=== PATIENT | female | born 1950 | race Caucasian/White ===

== ENCOUNTER 2016-11-21 09:59 | Inpatient (IN) | payer OTHER, MEDICARE ==
[~2016-11-21 09:59] MED LIST: BACITRACIN 50,000 UNITS/10 ML SYR IRR ONE; BUPIVACAINE/EPI 0.25% 30 ML SDV ONE; THROMBIN (BOVINE) 20,000 UNIT VIAL TP ONE
[2016-11-21] MEDS ORDERED: ceFAZolin 2 GM/DEXTROSE 100 ML IV ONE (10:38)
[2016-11-21] MEDS ORDERED: morphINE PF 5 MG/10 ML INJ IT ONE (10:38)
[2016-11-21] MEDS ORDERED: GABAPENTIN 100 MG CAP PO ONE (10:38)
[2016-11-21] MEDS ORDERED: ACETAMINOPHEN 500 MG TAB PO ONE (10:38)
--- NOTE | 2016-11-21 10:41 | PDHPUP ---
History & Physical Update H&P update statement: This history and physical update is based on an assessment of the patient which was completed after admission or registration (within 24 hours), but prior to the surgery/procedure. H&P update: H&P reviewed & patient examined, no change in patient's condition since H&P completed (All questions answered.)
[2016-11-21] MEDS ORDERED: CITRATE DEXTROSE SOLN 500 ML BAG ONE ×2 (11:00→12:35)
[2016-11-21] MEDS ORDERED: LR 1,000 ML IV ONE (11:03)
[2016-11-21] MEDS ORDERED: GABAPENTIN 300 MG CAP PO ONE (11:15)
[2016-11-21] MEDS ORDERED: SCOPOLAMINE HYDROBROMIDE 1.5 MG PATCH TD ONE (11:24)
--- NOTE | 2016-11-21 11:35 | PDANEPAE ---
ANE History of Present Illness 65 year old female with back pain/ numbness/tingling L > R leg. ANE Past Medical History Past Medical History: No URI/fever x2 weeks. - Cardiovascular History Hx Hypertension: Yes Hx Arrhythmias: No Hx Chest Pain: No Hx Coronary Artery / Peripheral Vascular Disease: No Hx CHF / Valvular Disease: No Hx Palpitations: No Cardiovascular History Comment: if she takes too much caffeine she gets fluttering in heart but she stays away from caffeine. pcp manages bp meds. - Pulmonary History Hx COPD: No Hx Asthma/Reactive Airway Disease: No Hx Recent Upper Respiratory Infection: No Hx Oxygen in Use at Home: No Hx Sleep Apnea: No Sleep Apnea Screening Result - Last Documented: Positive Pulmonary History Comment: gabbie triggers no dx - Neurologic History Hx Cerebrovascular Accident: No Hx Seizures: No Hx Dementia: No Neurologic History Comment: lumbar stenosis L2 L3 L4. DDD - Endocrine History Hx Diabetes: No Obesity: severe - Renal History Hx Renal Disorders: No - Liver History Hx Hepatic Disorders: No - Neurological & Psychiatric Hx Hx Neurological and Psychiatric Disorders: Yes Neurological / Psychiatric History Comment: pain --gluteal and back of legs . numbness and pain more on L side -radiates to L ft. - Cancer History Hx Cancer: No - Congenital Disorder History Hx Congenital Disorders: No - GI History Hx Gastrointestinal Disorders: No - Other Health History Other Health History: R shoulder injury 1 yr ago - Chronic Pain History Chronic Pain: Yes (left knee pain) - Surgical History Prior Surgeries: 04/2014 L TKR. tonsillectomy at 8 years old. wisdom teeth. ovaries removed ANE Review of Systems - Exercise capacity METS (RN): 4 METS - Systems Constitutional: Reports: no symptoms Cardiac: Reports: no symptoms Respiratory: Reports: no symptoms ANE Patient History - Allergies Allergies/Adverse Reactions: codeine Allergy (Mild, Verified 11/17/16 15:42) NAUSEA - Home Medications Home medications: home medication list seen and reviewed Home Medications: Cholecalciferol Vit D3 [Vitamin D3 (*)] 5,000 units PO DAILY 06/23/16 [Last Taken Unknown] Cyanocobalamin [Vitamin B12 (*)] 1,000 mcg PO DAILY 06/23/16 [Last Taken Unknown ] Herbals/Supplements -Info Only 1 ea PO DAILY 06/23/16 [Last Taken Unknown] Lisinopril/Hctz 10/12.5 mg [Zestoretic/Prinzide 10/12.5MG (*)] 1 ea PO DAILY [Last Taken Unknown] [place]-3 Fatty Acids [Fish Oil 1000 mg (*)] 1,000 mg PO DAILY 06/23/16 [Last Taken Unknown] Acetaminophen [Tylenol ES 500 mg (*)] 1,000 mg PO Q6 PRN 11/14/16 [Last Taken Unknown] Hydrocodone/Acetaminophen [[place] 5/325 (*)] 1 - 2 tab PO Q4H PRN 11/14/16 [Last Taken Unknown] Loratadine [Claritin 10 mg] 10 mg PO DAILY 11/14/16 [Last Taken Unknown] - NPO status NPO Since - Liquids (Date): 11/20/16 NPO Since - Liquids (Time): 21:00 NPO Since - Solids (Date): 11/20/16 NPO Since - Solids (Time): 21:00 - Anes Hx Anes Hx: post operative nausea Hx Anesthesia Complications (with details): shivering after oophorectomy - Smoking Hx Smoking Status: Never smoked Marijuana use: No - Alcohol Use Alcohol Use: Rarely - Family Anes Hx Family Anes Hx: neg - N/A Family Hx Anesthesia Complications: none ANE Labs/Vital Signs - Labs - CBC WBC: reviewed; no anemia - Labs - BMP Sodium: reviewed, WNL - Vital Signs Blood Pressure: 171/93 Heart Rate: 78 Respiratory Rate: 18 O2 Sat (%): 93 Height: 172.72 cm Weight: 131.542 kg ANE Physical Exam - Airway Neck exam: FROM Mallampati Score: Class 2 Mouth exam: normal dental/mouth exam - Pulmonary Pulmonary: clear to auscultation - Cardiovascular Cardiovascular: regular rate and rhythym - ASA Status ASA Status: III ANE Anesthesia Plan Anesthesia Plan: general endotracheal anesthesia Lines/Monitors: arterial line, additional IV
[2016-11-21] MEDS ORDERED: PROPOFOL/EMULSION 500 MG/50 ML BOTTLE IV ONE ×4 (11:43→15:28)
[2016-11-21] MEDS ORDERED: LIDOCAINE 2% 5 ML SDV ONE (11:43)
[2016-11-21] MEDS ORDERED: REMIFENTANIL HCL 1 MG VIAL ONE ×3 (11:43→15:03)
[2016-11-21] MEDS ORDERED: DEXAMETHASONE 4 MG/ML VIAL ONE (11:43)
[2016-11-21] MEDS ORDERED: ROCURONIUM 50 MG/5 ML VIAL ONE ×2 (11:43→12:47)
[2016-11-21] MEDS ORDERED: TRANEXAMIC ACID 1,000 MG in NS 100 ML IV ONE (11:46)
[2016-11-21] MEDS ORDERED: TRANEXAMIC ACID 1,300 MG in NS 100 ML IV ONE (11:46)
[2016-11-21] MEDS ORDERED: KETAMINE 100 MG/10 ML SYR ONE (11:50)
[2016-11-21] MEDS ORDERED: fentaNYL 100 MCG/2 ML INJ ONE (11:53)
[2016-11-21] MEDS ORDERED: DEXMEDETOMIDINE HCL 400 MCG in NS 100 ML IV SCH (12:00)
[2016-11-21] MEDS ORDERED: VASOPRESSIN 20 UNIT/ML VIAL ONE (12:36)
[2016-11-21] MEDS ORDERED: PROMETHAZINE HCL 25 MG/ML INJ IVP PRN (17:05)
[2016-11-21] MEDS ORDERED: HYDROmorphONE/DILAUDID 1 MG/ML SYR IVP PRN ×2 (17:05)
[2016-11-21] MEDS ORDERED: NALOXONE HCL 0.4 MG/ML INJ IVP PRN (17:05)
[2016-11-21] MEDS ORDERED: LR 500 ML IV PRN (17:05)
[2016-11-21] MEDS ORDERED: ONDANSETRON 4 MG/2 ML VIAL ONE (17:06)
[2016-11-21] MEDS ORDERED: oxyCODONE IR 5 MG TAB PO PRN (17:33)
[2016-11-21] MEDS ORDERED: POLYETHYLENE GLYCOL 3350 17 GM PKT PO PRN (17:33)
[2016-11-21] MEDS ORDERED: MAGNESIUM HYDROXIDE 30 ML UDCUP PO PRN (17:33)
[2016-11-21] MEDS ORDERED: BISACODYL 10 MG SUPP PR PRN (17:33)
[2016-11-21] MEDS ORDERED: LACTULOSE 20 GM/30 ML UDCUP PO PRN (17:33)
[2016-11-21] MEDS ORDERED: diphenhydrAMINE 25 MG CAP PO PRN (17:33)
[2016-11-21] MEDS ORDERED: ONDANSETRON 4 MG/2 ML VIAL IVP PRN (17:33)
[2016-11-21] MEDS ORDERED: ENALAPRILAT DIHYDRATE 1.25 MG/ML VIAL IVP PRN (17:43)
[2016-11-21] MEDS ORDERED: NS 1,000 ML IV SCH (17:45)
[2016-11-21] MEDS ORDERED: hydrALAZINE 20 MG/ML VIAL IVP PRN ×2 (17:46→17:51)
--- NOTE | 2016-11-21 17:50 | POSTOPPROG ---
Post Op Note Date of Operation: 11/21/16 Surgeon: Cathryn Gutierrez Novelty Candy Maker: Micah Gutierrez PA-C Anesthesiologist: Estella Anesthesia: GET(General Endotracheal) Pre-op Diagnosis: lumbar stenosis, ddd Post-op Diagnosis: same Indication: pain, stenosis Procedure: L2-4 laminectomy, L2-5 TLIF and posterior fusion Findings: Please see dictation Inf/Abcess present in the surg proc area at time of surgery?: No Depth: Organ Space EBL: 100-500 Complications: none Drains: Tapan Friedman Specimen(s): none PA Addendum - Addendum .: S: Pt resting in bed, c/o back pain O: AAOx3 NAD VSS MAEx4 Motor 5/5 BUE/BLE +LT Incision dressed cdi Kolb in A: 65 yo F s/p L2-4 laminectomy, L2-5 TLIF and posterior fusion P: To ICU overnight due to elevated BP in pre op Consulted hospitalists for assistance with medical management PT/OT Brace when OOB Silver dressing on incision - leave on for 7 days JPx1 DC kolb in AM Post op xrays pending Call NS with any issues
[2016-11-21] MEDS: SCOPOLAMINE HYDROBROMIDE 1.5 MG PATCH TD SCH (18:22)
--- NOTE | 2016-11-21 18:27 | POSTANESTH ---
Post Anesthetic Evaluation Cardiovascular Status: Normal, Stable Respiratory Status: Normal, Stable Level of Consciousness/Mental Status: Can Participate in Eval, Moderately Sleepy Pain Control: Adequate, Prn Tx Ordered (Back is sore, feels as though it is arched per pt. Placed a pillow under her knees to help with her spinal position. ) Nausea/Vomiting Control: Adequate, Prn Tx Ordered Complications Possibly Related to Anesthesia: None Noted
--- NOTE | 2016-11-21 20:01 | CPEKG ---
Heart Rate: 59 RR Interval: 1017 P-R Interval: 244 QRSD Interval: 94 QT Interval: 444 QTC Interval: 440 P [place]: 28 QRS [place]: -6 T Wave [place]: 50 EKG Severity - ABNORMAL ECG - EKG Impression: SINUS RHYTHM EKG Impression: FIRST DEGREE AV BLOCK EKG Impression: BORDERLINE T WAVE ABNORMALITIES Electronically Signed By: Mandeep German 22-Nov-2016 08:02:22
[2016-11-21] MEDS: FAMOTIDINE 20 MG TAB PO SCH (20:43)
[2016-11-21] MEDS: METHOCARBAMOL 750 MG TAB PO PRN (20:43)
[2016-11-21] MEDS: SENNOSIDES/DOCUSATE SODIUM TAB PO SCH (20:44)
[2016-11-21] MEDS: HYDROCODONE/APAP 5/325 TAB PO PRN ×2 (20:45→21:34)
[2016-11-21] MEDS: ceFAZolin 2 GM/DEXTROSE 100 ML IV SCH (20:45)
[2016-11-21] MEDS: POLYETHYLENE GLYCOL 3350 17 GM PKT PO SCH (21:49)
--- NOTE | 2016-11-21 23:18 | GCON ---
[f rep st] CONSULTATION HOSPITALIST MEDICINE CONSULTATION REFERRING PHYSICIAN: Jordy Crisostomo MD REASON FOR CONSULTATION: Uncontrolled hypertension. HISTORY OF PRESENT ILLNESS: This is a 65-year-old female, who underwent L2 to L4 laminectomy and L2 to L5 TLIF and posterior fusion with history of hypertension, whom I was asked to see postoperative ly due to elevated blood pressure at the initiation of her procedure. I reviewed her anesthesia rec ords where it appears her blood pressure was 200/100 at 10 o'clock this morning. She typically take s lisinopril/hydrochlorothiazide for high blood pressure, but did not take her medications today in preparation for surgery. She tells me that her blood pressure often raises when she is stressed. S he denies any chest pain or shortness of breath. She states her blood pressure has been under good control. IV enalapril and hydralazine have been ordered, but do not appear to have been administere d. Currently she is normotensive here in the ICU. PAST MEDICAL HISTORY: Hypertension. PAST SURGICAL HISTORY: 1. 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 2. Tonsillectomy and adenoidectomy as a child. 3. Left total knee arthroplasty. HOME MEDICATIONS: Reviewed; refer to [facility] for details next. ALLERGIES: Codeine. SOCIAL HISTORY: She denies any alcohol, tobacco, or illicit drug use. FAMILY HISTORY: Reviewed and noncontributory. REVIEW OF SYSTEMS: Comprehensive 10-point review of systems was done and is negative, except for as mentioned in the HPI. PHYSICAL EXAMINATION: VITAL SIGNS: Blood pressure 115/70, pulse 68, respiratory rate 20, O2 satura tion 95% on room air, temperature afebrile. GENERAL: No acute distress. HEAD: Normocephalic, atr aumatic. EYES: PERRLA. Sclerae anicteric. MOUTH: Moist mucous membranes. NECK: Supple. No ly mphadenopathy. CARDIOVASCULAR: S1, S2. No murmurs, rubs, clicks, gallops, or JVD. No lower extre mity edema. PULMONARY: Lungs are clear. No wheezes, rales, or rhonchi. Breath sounds are diminis hed in the bases. ABDOMEN: Soft, nontender, nondistended. No guarding or rebound tenderness. Nor moactive bowel sounds. EXTREMITIES: No clubbing or cyanosis. NEUROLOGIC: There is no saddle anes thesia. She is able to flex and extend her digits and foot. SKIN: Clear no rashes. I did not exa mine her incision. DIAGNOSTICS: Laboratory studies on 11/13/2016 were reviewed. WBC 7.56, hemoglobin 14.5, hematocrit 42.5, platelets 209. Sodium 138, potassium 3.8, chloride 104, CO2 is 25, BUN 23, creatinine 1, glu cose 92. LFTs unremarkable. ASSESSMENT AND PLAN: This is a 65-year-old female, postoperative day 0, L2 TO L4 laminectomy, L2 TO L5 transforaminal lumbar interbody fusion and posterior fusion, whom I have been asked to see due t o uncontrolled hypertension. The patient is normotensive and resting comfortably in the ICU. PLAN: Hospital Medicine Service will continue to follow the patient while she is in the hospital. For now, will resume her home dose of hydrochlorothiazide and lisinopril. Thank you for allowing me to participate in the care of this patient. The Hospitalist Service will continue to follow along with you. /[id number]/MODL
[2016-11-22] MEDS: HYDROCODONE/APAP 5/325 TAB PO PRN ×5 (00:32→14:56)
[2016-11-22] MEDS: METHOCARBAMOL 750 MG TAB PO PRN ×4 (03:11→20:01)
[2016-11-22] MEDS: ceFAZolin 2 GM/DEXTROSE 100 ML IV SCH (05:37)
[2016-11-22 05:57] LABS: % IMMATURE GRANULYOCYTES 0.3 % (0.0-1.1); ABSOLUTE IMMATURE GRANULOCYTES 0.03 10^3/uL (0.00-0.10); ADD DIFF? NO; ADD MORPH? NO; ADD SCAN? NO; ATYPICAL LYMPHOCYTE FLAG 0 (0-99); FRAGMENT RBC FLAG 0 (0-99); HEMATOCRIT 33.9 % (38.0-47.0); HEMOGLOBIN 11.8 g/dL (12.6-16.3); LEFT SHIFT FLG 0 (0-99); LIPEMIA HEMOLYSIS FLAG 90 (0-99); MEAN CELL HEMOGLOBIN 30.7 pg (27.9-34.1); MEAN CELL HEMOGLOBIN CONCENTR. 34.8 g/dL (32.4-36.7); MEAN CELL VOLUME 88.3 fL (81.5-99.8); MEAN PLATELET VOLUME 9.6 fL (8.7-11.7); PLATELET CLUMPS FLAG 10 (0-99); PLATELET COUNT 184 10^3/uL (150-400); RED BLOOD CELL COUNT 3.84 10^6/uL (4.18-5.33); RED CELL DISTRIBUTION WIDTH 13.2 % (11.5-15.2)
[2016-11-22 06:11] LABS: ANION GAP 8 mEq/L (8-16); CALCIUM 8.1 mg/dL (8.5-10.4); CARBON DIOXIDE 20 mEq/l (22-31); CHLORIDE 110 mEq/L (97-110); CREATININE 0.8 mg/dL (0.6-1.0); GLOMERULAR FILTRATION RATE > 60; GLUCOSE 93 mg/dL (70-100); SODIUM 138 mEq/L (134-144)
[2016-11-22] MEDS: ENOXAPARIN 40 MG/0.4 ML SYR SC SCH (07:54)
[2016-11-22] MEDS: CYANO/VITAMIN B12 1000 MCG TAB PO SCH (07:54)
[2016-11-22] MEDS: CHOLECALCIFEROL VIT D3 1,000 UNITS TAB PO SCH (07:54)
[2016-11-22] MEDS: POLYETHYLENE GLYCOL 3350 17 GM PKT PO SCH ×3 (07:54→22:28)
[2016-11-22] MEDS: FAMOTIDINE 20 MG TAB PO SCH ×2 (07:54→20:02)
[2016-11-22] MEDS: SENNOSIDES/DOCUSATE SODIUM TAB PO SCH ×2 (07:54→19:59)
[2016-11-22] MEDS: CETIRIZINE 10 MG TAB PO SCH (07:55)
[2016-11-22] MEDS: LISINOPRIL/HCTZ 10/12.5 MG 1 EA TAB PO SCH (08:23)
[2016-11-22] MEDS ORDERED: NON-FORMULARY NEW DRUG (Loratadine [Claritin 10 Mg] 10 MG) PO SCH (09:00)
[2016-11-22] MEDS: ONDANSETRON DISINTEGRATING 4 MG TAB PO PRN ×2 (09:21→20:47)
--- NOTE | 2016-11-22 09:24 | GOP ---
[f rep st] OPERATIVE REPORT DATE OF OPERATION: 11/21/2016 SURGEON: Jordy Crisostomo MD PUMP ASSEMBLER: Cathryn Gutierrez PHectorA.-Jeffrey. ANESTHESIA: General. PREOPERATIVE DIAGNOSIS: 1. L2 through L5 lumbar spondylosis. 2. L3-L4 lumbar spondylolisthesis with severe spinal stenosis. 3. Low back pain and claudication. 4. Treatment refractory to nonoperative intervention surgery. POSTOPERATIVE DIAGNOSIS: 1. L2 through L5 lumbar spondylosis. 2. L3-L4 lumbar spondylolisthesis with severe spinal stenosis. 3. Low back pain and claudication. 4. Treatment refractory to nonoperative intervention surgery. PROCEDURE PERFORMED: 1. Posterior arthrodesis with approach to the L2, L3, L4 and L5. 2. Posterolateral fusion with bilateral pedicle screw placement at L2, L3, L4 and L5 from the [employer] Solera 5.5 system. 3. Use of intraoperative 3D Stealth navigation. 4. Use of intraoperative fluoroscopy, less than 1 hour physician time. 5. Use of neuromonitoring. 6. Use of operative microscope. 7. Decompressive laminectomy with bilateral medial facetectomies, L2-L3, L3-L4 and partial L4-L5 la minectomy. 8. Right-sided L2-L3 transforaminal lumbar interbody fusion with an 8 x 26 mm titanium coated PEEK cage with morselized autograft and allograft. 9. Right-sided L3-L4 transforaminal lumbar interbody fusion with a 9 x 22 mm titanium coated PEEK c age with morselized autograft and allograft. 10. Left-sided L4-5 transforaminal lumbar interbody fusion with a 7 x 26 mm titanium coated PEEK ca ge with morselized autograft and allograft. 11. Posterolateral fusion on the left between L2 and L4 and right side at L4-L5, with morselized au tograft and allograft. 12. Injection of preservative-free intrathecal narcotics. FINDINGS: SPECIMENS: None. ESTIMATED BLOOD LOSS: 500 mL. INDICATIONS: This patient is a 65-year-old woman who has been suffering from low back pain with low er extremity radiculopathy and claudication. She had evidence of spinal stenosis at L2-L3 and sever e at L3-L4, with spondylolisthesis at L3-L4. Given her spondylosis and failure to improve with nono perative intervention, we decided to proceed forth with surgery as described above. DESCRIPTION OF PROCEDURE: The patient was brought to the operating theater and underwent general en dotracheal anesthesia without complications. She had Venodynes, CAROLYN hose, and the appropriate lines placed by Anesthesia. She was then flipped prone onto a [place] table. All bony processes were in spected and padded. Because of the patient's body habitus, we did have to spend extra time with ins uring that all bony prominences were padded. Utilizing fluoroscopy and a spinal needle, we then picked our entry point to the L2 through L5 level s. This was marked in the midline and the area then prepped and draped in the usual sterile surgica l fashion. A time-out was completed per protocol and the patient received antibiotics within 1 hour of incision. The incision was infiltrated with Marcaine with epinephrine and taken down with the s calpel blade. Using monopolar, it was then taken down to the midline through the lumbodorsal fascia . Subperiosteal dissection was carried to the transverse process of L2, L3, L4, and L5. Deep retra ctor was placed to maintain our exposure. We confirmed our level using lateral fluoroscopy. We att ached the 3D Stealth navigation clamp to the spinous process of L5 and completed a 3D Stealth naviga tion spin. Using 3D Stealth navigation, we then placed the pest control pilot holes for the bilateral pedicle sc rews at L2, L3, L4, and L5. All holes were manually palpated with no cine cortical breaches. We th en tapped and placed 6.5 x 55 mm screws in the left L2, bilateral L3, and bilateral L4 levels. We t hen placed a 6.5 x 50 mm screw in the right at L2 and bilaterally at L5 from the [employer] Solera 5. 5 system. Another 3D Stealth navigation spin demonstrated good placement of the hardware. At this point, the port the microscope was brought into the field to assist with microscopic dissect ion and to maintain illumination and magnification. Using a combination of imchoacano tip on the drill bi t, Kerrison punches and Le[place]ell rongeur, we completed a decompressive laminectomy with bilateral med ial facetectomies, L2-L3 and L3-L4. We also completed a partial cranial resection L4-L5, with left- sided hemilaminotomy and resection of the pars. We moved up to the L2-L3 level on the right side, where we completed a right-sided pars resection an d completed a foraminotomy. We distracted the interspace and completed a right-sided L2-L3 diskecto my. We prepared the concept plates and measured the interbody space. We then placed an 8 x 26 mm t itanium coated PEEK cage filled with morcellized autograft and allograft into the L2-L3 disk space. We packed additional morcellized autograft in the disk space interbody fusion without distraction. We moved on to L3-L4 where, from the right side, we resected the pars and completed a foraminotomy a nd completed a right-sided L3-L4 diskectomy. We prepared the cartilaginous endplates and measured t he interbody space. We placed a 9 x 22 mm titanium coated PEEK cage with morcellized autograft and allograft anteriorly toward the midline. We packed additional morcellized autograft in the disk spa ce interbody fusion with down distraction. We moved down to L4-L5 on the left side, where we completed the resection of the pars and completed a foraminotomy and distracted the interspace. We completed a left-sided L4-L5 diskectomy and prepar ed the cartilaginous endplates. We then measured the interbody space and placed a 7 x 26 mm titaniu m coated PEEK cage with morcellized autograft and allograft anteriorly toward the midline. We let t he distraction decorticated bone on the left side between L2 and L4, and right side L4-L5. The mitch ent's bone was noted to be very tough in general. We irrigated the wound copiously with bacitracin irrigation and placed 2 lordotic rods into the head s of the screws between L2 and L4-L5, and secured them down with cap screws which were then tightene d per the haircutter's setting. We placed morcellized allograft and autograft on the left side be tween L2 to L4, and on the right side L4-L5 posterolateral fusion. We injected preservative-free in trathecal narcotics and left a drain in the subfascial space. The wound was then closed in multiple layers using Vicryl sutures for the deep layers and Dermabond for the skin. The patient's wounds w ere dressed sterilely. She was then flipped supine on the transfer cart. She was awakened, extubat ed, and taken to the recovery room in stable condition. There were no complications and no noted changes on neuromonitoring throughout the procedure. COMPLICATIONS: None. /[id number]/MODL
--- NOTE | 2016-11-22 09:54 | NEUSURGPN ---
Assessment/Plan: A: 65 yo F s/p L2-4 laminectomy, L2-5 TLIF and posterior fusion POD#1 P: To ICU overnight due to elevated BP in pre op - ok to transfer to floor Appreciate hospitalists for assistance with medical management. PT/OT Brace when OOB Silver dressing on incision - leave on for 7 days JPx1 DC kolb Post op xrays pending Call NS with any issues Subjective: Pt resting in bed, c/o low back pain. Objective: AAOx3 NAD VSS MAEx4 Motor 5/5 BLE +LT - numbness in left foot and right anterior thigh Urinary Catheter in Place: Yes Urinary Catheter Indication: Other (Use Comment) (to be removed today) Catheter Insertion Date: 11/21/16 Neurosurgery Physical Exam - Vitals, I&O, Labs I and O 11/21/16 11/22/16 11/23/16 05:59 05:59 05:59 Intake Total 2757 Output Total 1920 Balance 837 Weight 131.542 kg Intake: Oral (ml) 2050 IV Infused (ml) 707 Ns 1,000 ml @ 75 mls/hr 707 IV CONT KAYDEN Rx#: [id number] Output: Urine (ml) 1800 Catheter 1800 RICKY Drain Output (ml) 120 Back Tapan Friedman 120 Other: Intake Quantity Yes Sufficient Number of Stools Catheter 0 Vital Signs Temp Pulse Resp BP Pulse Ox 36.4 C 60 19 166/66 H 97 11/22/16 00:00 11/22/16 06:00 11/22/16 06:00 11/22/16 08:23 11/22/16 06:00 Laboratory Results 11/22/16 05:35 11/22/16 05:35 ICD10 Worksheet Patient Problems: Problems Problem Status Onset Osteoarthritis of knee Acute
--- NOTE | 2016-11-22 13:54 | HOSPPROG ---
Hospitalist Progress Note Assessment/Plan: assessment: 65-year-old female presents with chronic lower back pain secondary to severe spinal stenosis requiring surgery, complicated by acute on chronic hypertension Plan: 1. Hypertension. Acute on chronic, patient is elevated systolic levels yesterday were most likely secondary to a combination of her not taking her morning antihypertensive medication as well as what she clearly identifies as white coat hypertension. Her systolic levels have stabilized even before she received her 1st dose of her home lisinopril /hydrochlorothiazide, and her systolic blood pressure has been in a safe 110-130 range -she has been re-initiated on her home dosage of antihypertensive and I would recommend continuing -her systolic blood pressure is well controlled and no additional management recommendations are indicated 2. Spinal stenosis. Severe, postop day 1 from L2-L4 laminectomy, L2-L5 TLIF -postop management pain control under the direction of her primary neurosurgery service -counseled the patient and her extensively regarding bowel regiment management, increasing activity, oral pain management strategies, general recovery moving forward Hospital Medicine service will sign off on this patient's care as they are not no further active medical issues requiring our consultation. If further assistance is required, please contact me directly at [phone]. Subjective: Patient was experiencing some nausea and woozy feeling but this has mostly subsided, she has yet to move her bowels, she has had a small amount of oral intake Objective: Vital Signs Temp Pulse Resp BP Pulse Ox 36.8 C 59 L 18 118/62 94 11/22/16 12:47 11/22/16 12:47 11/22/16 12:47 11/22/16 12:47 11/22/16 12:47 Laboratory Results 11/22/16 05:35 11/22/16 05:35 11/21/16 11/22/16 11/23/16 05:59 05:59 05:59 Intake Total 2757 Output Total 1920 1200 Balance 837 -1200 - Time Spent With Patient Time Spent with Patient: greater than 25 minutes Time Spent with Patient: Greater than 25 minutes spent on this patients care, greater than 50% of time spent counseling, educating, and coordinating care regarding the above mentioned plan. - Physical Exam Constitutional: no apparent distress, not in pain, obese, No uncomfortable Cardiovascular: regular rate and rhythym, no murmur, rub, or gallop Respiratory: no respiratory distress, no rales or rhonchi, clear to auscultation Gastrointestinal: normoactive bowel sounds, soft, non-tender abdomen, no palpable masses Genitourinary: kolb in urethra ( clear urine) Neurologic: AAOx3 Psychiatric: interacting appropriately, not anxious, not encephalopathic, thought process linear ICD10 Worksheet Patient Problems: Problems Problem Status Onset Osteoarthritis of knee Acute
[2016-11-22] MEDS: HYDROCODONE/APAP 10/325 TAB PO PRN (20:00)
[2016-11-23] MEDS: HYDROCODONE/APAP 10/325 TAB PO PRN ×5 (00:01→20:40)
[2016-11-23] MEDS: METHOCARBAMOL 750 MG TAB PO PRN ×4 (02:03→19:14)
[2016-11-23] MEDS: ONDANSETRON DISINTEGRATING 4 MG TAB PO PRN ×4 (03:03→20:41)
[2016-11-23] MEDS: POLYETHYLENE GLYCOL 3350 17 GM PKT PO SCH ×3 (08:26→19:15)
[2016-11-23] MEDS: CHOLECALCIFEROL VIT D3 1,000 UNITS TAB PO SCH (08:28)
[2016-11-23] MEDS: LISINOPRIL/HCTZ 10/12.5 MG 1 EA TAB PO SCH (08:29)
[2016-11-23] MEDS: CETIRIZINE 10 MG TAB PO SCH (08:29)
[2016-11-23] MEDS: SENNOSIDES/DOCUSATE SODIUM TAB PO SCH ×2 (08:30→19:14)
[2016-11-23] MEDS: CYANO/VITAMIN B12 1000 MCG TAB PO SCH (08:30)
[2016-11-23] MEDS: FAMOTIDINE 20 MG TAB PO SCH ×2 (08:30→19:14)
[2016-11-23] MEDS: ENOXAPARIN 40 MG/0.4 ML SYR SC SCH (08:32)
--- NOTE | 2016-11-23 10:19 | NEUSURGPN ---
Assessment/Plan: A: 65 yo F s/p L2-4 laminectomy, L2-5 TLIF and posterior fusion POD#2 P: BP has been stable, hospitalists signed off PT/OT Brace when OOB Incision - silver dressing rolled up and was removed by RN. Continue to check incision daily with daily dressing changes JPx1 - remove Post op xrays show stable hardware without evidence of failure Call NS with any issues Subjective: Pt resting in bed, states she is feeling better today than yesterday Objective: AAOx3 NAD VSS MAEx4 Motor 5/5 BLE Incision cdi surigcal glue in place JPx1 Urinary Catheter in Place: No Catheter Insertion Date: 11/21/16 Neurosurgery Physical Exam - Vitals, I&O, Labs I and O 11/22/16 11/23/16 11/24/16 05:59 05:59 05:59 Intake Total 2757 850 Output Total 1920 2950 Balance 837 -2100 Weight 131.542 kg Intake: Oral (ml) 2050 850 IV Infused (ml) 707 Ns 1,000 ml @ 75 mls/hr 707 IV CONT KAYDEN Rx#: [id number] Output: Urine (ml) 1800 2900 Bedside Commode 200 Catheter 1800 1000 Toilet 1700 RICKY Drain Output (ml) 120 50 Back Tapan Friedman 120 50 Other: Intake Quantity Yes Sufficient Output Comment Bedside Commode post kolb void Number of Voids Toilet 1 Number of Stools Catheter 0 Vital Signs Temp Pulse Resp BP Pulse Ox 37.7 C 76 16 165/85 H 92 11/23/16 08:08 11/23/16 08:08 11/23/16 08:08 11/23/16 08:08 11/23/16 08:08 Laboratory Results 11/22/16 05:35 11/22/16 05:35 ICD10 Worksheet Patient Problems: Problems Problem Status Onset Osteoarthritis of knee Acute
[2016-11-24] MEDS: HYDROCODONE/APAP 10/325 TAB PO PRN ×5 (00:45→21:24)
[2016-11-24] MEDS: METHOCARBAMOL 750 MG TAB PO PRN ×4 (02:52→21:27)
[2016-11-24] MEDS: ONDANSETRON DISINTEGRATING 4 MG TAB PO PRN (04:36)
--- NOTE | 2016-11-24 09:19 | NEUSURGPN ---
Assessment/Plan: A: 65 yo F s/p L2-4 laminectomy, L2-5 TLIF and posterior fusion POD#3 P: BP has been stable, hospitalists signed off Some nausea and abd discomfort. Pateint is passing gas this morning PT/OT Brace when OOB Incision - silver dressing rolled up and was removed by RN- Need to place tape over silver dressing to keep in place. Discussed with nurse. Post op xrays show stable hardware without evidence of failure Call NS with any issues Dispo planning once nausea/abd discomfort improved. Subjective: Nausea, passing gas. Left low back pain Objective: NAD A&Ox3 MAEx4 5/5 and equal in BUE and BLE. Incision c/d/i Catheter Insertion Date: 11/21/16 - Physician Patient Seen by : Andressa Neurosurgery Physical Exam - Vitals, I&O, Labs I and O 11/23/16 11/24/16 11/25/16 05:59 05:59 05:59 Intake Total 850 2150 Output Total 2950 Balance -2100 2150 Intake: Oral (ml) 850 2150 Output: Urine (ml) 2900 Bedside Commode 200 Catheter 1000 Toilet 1700 RICKY Drain Output (ml) 50 Back Tapan Friedman 50 Other: Intake Quantity Yes Sufficient Output Comment Bedside Commode post kolb void Number of Voids Toilet 1 1 Vital Signs Temp Pulse Resp BP Pulse Ox 37.2 C 73 18 143/66 H 95 11/24/16 07:20 11/24/16 07:20 11/24/16 07:20 11/24/16 07:20 11/24/16 07:20 Laboratory Results 11/22/16 05:35 11/22/16 05:35 ICD10 Worksheet Patient Problems: Problems Problem Status Onset Osteoarthritis of knee Acute
[2016-11-24] MEDS: ENOXAPARIN 40 MG/0.4 ML SYR SC SCH ×2 (09:26→21:23)
[2016-11-24] MEDS: SENNOSIDES/DOCUSATE SODIUM TAB PO SCH ×2 (09:27→21:25)
[2016-11-24] MEDS: CETIRIZINE 10 MG TAB PO SCH (09:27)
[2016-11-24] MEDS: POLYETHYLENE GLYCOL 3350 17 GM PKT PO SCH ×3 (09:27→21:25)
[2016-11-24] MEDS: FAMOTIDINE 20 MG TAB PO SCH ×2 (09:27→21:24)
[2016-11-24] MEDS: CHOLECALCIFEROL VIT D3 1,000 UNITS TAB PO SCH (09:27)
[2016-11-24] MEDS: LISINOPRIL/HCTZ 10/12.5 MG 1 EA TAB PO SCH (09:27)
[2016-11-24] MEDS: CYANO/VITAMIN B12 1000 MCG TAB PO SCH (09:27)
[2016-11-24] MEDS ORDERED: PATCH REMOVAL 1 EA PATCH TD SCH (11:36)
[2016-11-24] MEDS: SCOPOLAMINE HYDROBROMIDE 1.5 MG PATCH TD SCH (13:38)
[2016-11-25] MEDS: HYDROCODONE/APAP 10/325 TAB PO PRN ×3 (00:54→09:48)
[2016-11-25] MEDS: METHOCARBAMOL 750 MG TAB PO PRN (05:41)
[2016-11-25 08:17] VITALS: BP 107/55; PULSE 85; RESP 16; TEMP 99.7; O2SAT 98
--- NOTE | 2016-11-25 08:40 | NEUSURGPN ---
Assessment/Plan: A: 65 yo F s/p L2-4 laminectomy, L2-5 TLIF and posterior fusion POD#4 P: BP has been stable, hospitalists signed off Pt had BM yesterday PT/OT Brace when OOB Incision - silver dressing rolled up - Pt to remove dressing once home today. Post op xrays show stable hardware without evidence of failure Call NS with any issues DC to home today D/w Dr Crisostomo Subjective: Pt resting in bed, had BM yesterday and states she wants to DC today Objective: AAOx3 NAD VSS MAEx4 Motor 5/5 BLE Incision cdi - ecchymosis at inferior portion of incision. Surgical glue in place. Urinary Catheter in Place: No Catheter Insertion Date: 11/21/16 - Physician Discussed Patient with Dr.: Crisostomo Neurosurgery Physical Exam - Vitals, I&O, Labs I and O 11/24/16 11/25/16 11/26/16 05:59 05:59 05:59 Intake Total 2150 1500 Balance 2150 1500 Intake: Oral (ml) 2150 1500 Other: Intake Quantity Yes Sufficient Number of Voids Toilet 1 Number of Stools Toilet 1 Vital Signs Temp Pulse Resp BP Pulse Ox 37.6 C 85 16 107/55 L 98 11/25/16 08:14 11/25/16 08:14 11/25/16 08:14 11/25/16 08:14 11/25/16 08:14 Laboratory Results 11/22/16 05:35 11/22/16 05:35 ICD10 Worksheet Patient Problems: Problems Problem Status Onset Osteoarthritis of knee Acute
[2016-11-25] MEDS: CHOLECALCIFEROL VIT D3 1,000 UNITS TAB PO SCH (09:47)
[2016-11-25] MEDS: ENOXAPARIN 40 MG/0.4 ML SYR SC SCH (09:47)
[2016-11-25] MEDS: LISINOPRIL/HCTZ 10/12.5 MG 1 EA TAB PO SCH (09:48)
[2016-11-25] MEDS: CETIRIZINE 10 MG TAB PO SCH (09:49)
[2016-11-25] MEDS: CYANO/VITAMIN B12 1000 MCG TAB PO SCH (09:49)
[2016-11-25] MEDS: FAMOTIDINE 20 MG TAB PO SCH (09:50)
[2016-11-25] MEDS: SENNOSIDES/DOCUSATE SODIUM TAB PO SCH (11:08)
[2016-11-25] MEDS: POLYETHYLENE GLYCOL 3350 17 GM PKT PO SCH (11:08)
== END 2016-11-25 13:24 | disposition home or self-care (01) | DRG 460 ==
LOC: F3N 09:59 → F2N 18:30 → F3N 11-22 12:11
PROVIDERS: ADMIT Neurological Surgery; ATTEND Neurological Surgery
PROC: 4A1004G Monitoring of Central Nervous Electrical Activity, Intraoperative, Open Approach (ICD-10-PCS; principal; 2016-11-21 12:15)
PROC: 8E0WXBZ Computer Assisted Procedure of Trunk Region (ICD-10-PCS; principal; 2016-11-21 12:15)
PROC: 0SG10AJ Fusion of 2 or more Lumbar Vertebral Joints with Interbody Fusion Device, Posterior Approach, Anterior Column, Open Approach (ICD-10-PCS; principal; 2016-11-21 12:15)
PROC: 0ST20ZZ Resection of Lumbar Vertebral Disc, Open Approach (ICD-10-PCS; principal; 2016-11-21 12:15)
DX: M47.896 Other spondylosis, lumbar region (principal); Z68.41 Body mass index [BMI] 40.0-44.9, adult; M43.16 Spondylolisthesis, lumbar region; M48.06 Spinal stenosis, lumbar region; M51.36 Other intervertebral disc degeneration, lumbar region; E78.5 Hyperlipidemia, unspecified; E66.01 Morbid (severe) obesity due to excess calories; I10 Essential (primary) hypertension; Z96.652 Presence of left artificial knee joint
CPT/HCPCS: 97116-GP; 97161-GP; 97166-GO; 97530-GP; 97535-GO; C1713; G8978-GP-CK; G8979-GP-CI; G8980-GP-CI; G8987-GO-CK; G8988-GO-CI; J0690; J1100; J1650; J2405; J2704; J3010; J7060

== ENCOUNTER 2016-12-25 12:25 | Inpatient (IN) | payer OTHER, MEDICARE ==
[2016-12-25] MEDS ORDERED: ACETAMINOPHEN 500 MG TAB PO ONE (13:00)
[2016-12-25] MEDS ORDERED: GABAPENTIN 300 MG CAP PO ONE (13:00)
[2016-12-25] MEDS ORDERED: morphINE SR 15 MG TAB PO ONE (13:00)
--- NOTE | 2016-12-25 13:33 | PDGENHP ---
History and Physical - Chief Complaint Drainage from lumbar wound - History of Present Illness Ms. Gerardo is a 66 year old female patient who underwent L2- L4 laminectomy, right sided L23, L34, and left L45 TLIFs with L2-L5 posterior fusion on 11/21/16 with . She returned to clinic on 12/23/16 for a wound check. On 12/22/16 evening she developed drainage from her incision with clear pinkish fluid and has soaked through several dressings. She contacted our office and was brought in for examination. She denied any fever/chills/night sweats/nausea/vomiting/aches. Prior to this had no drainage whatsoever. She had labs drawn yesterday 12/24/16 and WBC was 7.27, ESR was 28, and CRP was 23.5. She presents today for another wound check. She states it has continued to drain since her last visit. The drainage is pink/clear with no pus. No fever or chills but her feet have been warm and tingly at night. History Information - Allergies/Home Medication List Allergies/Adverse Reactions: morphine Allergy (Severe, Verified 11/24/16 15:37) codeine Allergy (Mild, Verified 11/17/16 15:42) NAUSEA Home Medications: Cholecalciferol Vit D3 [Vitamin D3 (*)] 5,000 units PO DAILY 06/23/16 [Last Taken 11/16/16] Cyanocobalamin [Vitamin B12 (*)] 1,000 mcg PO DAILY 06/23/16 [Last Taken ] Herbals/Supplements -Info Only 1 ea PO DAILY 06/23/16 [Last Taken 11/16/16] Lisinopril/Hctz 10/12.5 mg [Zestoretic/Prinzide 10/12.5MG (*)] 1 ea PO DAILY [Last Taken 11/20/16 08:00] Loratadine [Claritin 10 mg] 10 mg PO DAILY 11/14/16 [Last Taken 11/15/16] I have personally reviewed and updated: family history, medical history, social history, surgical history - Past Medical History degenerative disc disease, hypertension - Surgical History Reports: spinal surgery - Family History Positive for: cancer - Social History Smoking Status: Never smoked Alcohol Use: Rarely Drug Use: None Review of Systems ROS: 10pt was reviewed & negative except for what was stated in HPI & below Skin: Reports: other (drainage from lumbar incision) Physical Exam Constitutional: no apparent distress, appears nourished, not in pain, obese Cardiovascular: other (well perfused) Respiratory: no respiratory distress Skin: other (lumbar incision with 1cm x 0.5cm opening and clear/brown/pink fluid drainage on incision) Neurologic: AAOx3, sensation intact bilaterally, other (using cane to assist with ambulation) Assessment & Plan Assessment: 66 y F with drainage from lumbar wound possible wound infection Plan: Plan: -Admit to 3N -NPO -Stat MRI L spine w/wo contrast -Consent left at bedside for lumbar wound exploration and wash out. -Surgery scheduled for today at 3pm. NO ABX prior to incision. -Call NS with any questions
[2016-12-25] MEDS ORDERED: LIDOCAINE 1% 2 ML INJ ID PRN (13:50)
[2016-12-25] MEDS ORDERED: LR 1,000 ML IV ONE (13:50)
[2016-12-25] MEDS ORDERED: GADOBUTROL 10 ML VIAL IVP ONE (14:07)
[2016-12-25] MEDS ORDERED: THROMBIN (BOVINE) 5,000 UNIT VIAL TP ONE (18:26)
[2016-12-25] MEDS ORDERED: BUPIVACAINE 0.25% 30 ML SDV ONE ×2 (18:26→18:28)
[2016-12-25] MEDS ORDERED: BACITRACIN 50,000 UNITS/10 ML SYR IRR ONE (18:27)
[2016-12-25] MEDS ORDERED: CHLORHEXIDINE GLUCONATE 15 ML UDL ONE (18:28)
[2016-12-25] MEDS ORDERED: AVITENE POWDER 1 GM JAR TP ONE (18:28)
[2016-12-25] MEDS ORDERED: GENTAMICIN SULFATE 80 MG/2 ML VIAL ONE (18:31)
[2016-12-25] MEDS ORDERED: CHLORHEXIDINE GLUC HIBICLENS 118 ML BTL TP ONE (18:31)
[2016-12-25] MEDS ORDERED: POLYMYXIN B SULFATE 500,000 UNIT/10 ML SYR IRR ONE (18:40)
--- NOTE | 2016-12-25 18:44 | PDANEPAE ---
ANE History of Present Illness seroma I&D lumbar ANE Past Medical History - Cardiovascular History Hx Hypertension: Yes Hx Arrhythmias: No Hx Chest Pain: No Hx Coronary Artery / Peripheral Vascular Disease: No Hx CHF / Valvular Disease: No Hx Palpitations: No Cardiovascular History Comment: if she takes too much caffeine she gets fluttering in heart but she stays away from caffeine. pcp manages bp meds - Pulmonary History Hx COPD: No Hx Asthma/Reactive Airway Disease: No Hx Recent Upper Respiratory Infection: No Hx Oxygen in Use at Home: No Hx Sleep Apnea: No Pulmonary History Comment: gabbie triggers no dx - Neurologic History Hx Cerebrovascular Accident: No Hx Seizures: No Hx Dementia: No Neurologic History Comment: lumbar stenosis L3 L4 - Endocrine History Hx Diabetes: No Obesity: severe - Renal History Hx Renal Disorders: No - Liver History Hx Hepatic Disorders: No - Neurological & Psychiatric Hx Hx Neurological and Psychiatric Disorders: No Neurological / Psychiatric History Comment: pain --gluteal and back of legs . numbness and pain more on L side -radiates to L ft. - Cancer History Hx Cancer: No - Congenital Disorder History Hx Congenital Disorders: No - GI History Hx Gastrointestinal Disorders: No - Other Health History Other Health History: none - Chronic Pain History Chronic Pain: Yes (left knee pain) - Surgical History Prior Surgeries: 04/2014 L TKR. tonsillectomy at 8 years old. wisdom teeth. ovaries removed ANE Review of Systems Review of systems is: negative - Exercise capacity Exercise capacity: >=4 METS ANE Patient History - Allergies Allergies/Adverse Reactions: morphine Allergy (Severe, Verified 12/25/16 16:48) Other-Enter Comments codeine Allergy (Mild, Verified 11/17/16 15:42) NAUSEA - Home Medications Home Medications: Cholecalciferol Vit D3 [Vitamin D3 (*)] 5,000 units PO DAILY 06/23/16 [Last Taken 12/25/16] Cyanocobalamin [Vitamin B12 (*)] 1,000 mcg PO DAILY 06/23/16 [Last Taken ] Herbals/Supplements -Info Only 1 ea PO DAILY 06/23/16 [Last Taken 12/24/16] Lisinopril/Hctz 10/12.5 mg [Zestoretic/Prinzide 10/12.5MG (*)] 1 ea PO DAILY [Last Taken 12/25/16] Loratadine [Claritin 10 mg] 10 mg PO DAILY 11/14/16 [Last Taken 12/24/16] Acetaminophen [Tylenol ES 500 mg (*)] 500 mg PO Q4-6PRN PRN 12/25/16 [Last Taken 12/25/16 10:30 500MG] - NPO status NPO Status: no food or drink >8 hours NPO Since - Liquids (Date): 12/25/16 NPO Since - Liquids (Time): 10:30 NPO Since - Solids (Date): 12/25/16 NPO Since - Solids (Time): 09:00 - Anes Hx Anes Hx: post operative nausea and vomiting - Smoking Hx Smoking Status: Never smoked - Alcohol Use Alcohol Use: Rarely - Family Anes Hx Family Hx Anesthesia Complications: none ANE Labs/Vital Signs - Vital Signs Blood Pressure: 161/92 Heart Rate: 72 Respiratory Rate: 16 O2 Sat (%): 98 Height: 172.72 cm Weight: 129.274 kg ANE Physical Exam - Airway Neck exam: FROM Mallampati Score: Class 2 - Pulmonary Pulmonary: no respiratory distress - Cardiovascular Cardiovascular: regular rate and rhythym - ASA Status ASA Status: III ANE Anesthesia Plan Anesthesia Plan: general endotracheal anesthesia
[2016-12-25] MEDS ORDERED: MIDAZOLAM 2 MG/2 ML VIAL IVP ONE (18:45)
[2016-12-25] MEDS ORDERED: LABETALOL HCL 5 MG/ML 20 ML MDV IV ONE (18:45)
[2016-12-25] MEDS ORDERED: ROCURONIUM 50 MG/5 ML VIAL ONE (18:52)
[2016-12-25] MEDS ORDERED: DEXAMETHASONE 4 MG/ML VIAL ONE (18:52)
[2016-12-25] MEDS ORDERED: fentaNYL 100 MCG/2 ML INJ ONE ×4 (18:52→20:45)
[2016-12-25] MEDS ORDERED: LIDOCAINE 2% 5 ML SDV ONE (18:52)
[2016-12-25] MEDS ORDERED: PROPOFOL 200 MG/20 ML VIAL ONE (18:52)
[2016-12-25] MEDS ORDERED: ceFAZolin 1 GM VIAL ONE ×3 (19:36)
[2016-12-25] MEDS ORDERED: SUGAMMADEX SODIUM 200 MG/2 ML VIAL IVP ONE (19:47)
[2016-12-25] MEDS ORDERED: BACITRACIN ZINC 14.2 GM OINTTUBE TP ONE (20:14)
[2016-12-25] MEDS ORDERED: ONDANSETRON 4 MG/2 ML VIAL ONE (20:45)
[2016-12-25] MEDS ORDERED: ONDANSETRON 4 MG/2 ML VIAL IVP PRN (20:46)
[2016-12-25] MEDS ORDERED: MEPERIDINE 25 MG/ML SYR IVP PRN (20:46)
[2016-12-25] MEDS ORDERED: fentaNYL 100 MCG/2 ML INJ IVP PRN (20:46)
[2016-12-25] MEDS ORDERED: NALOXONE HCL 0.4 MG/ML INJ IVP PRN (20:46)
[2016-12-25] MEDS ORDERED: HYDROmorphONE/DILAUDID 1 MG/ML SYR IVP PRN (20:46)
[2016-12-25] MEDS ORDERED: DIAZEPAM 10 MG/2 ML SYR IVP PRN (20:46)
--- NOTE | 2016-12-25 20:48 | POSTANESTH ---
Post Anesthetic Evaluation Cardiovascular Status: Normal, Stable Respiratory Status: Normal, Stable Level of Consciousness/Mental Status: Can Participate in Eval Pain Control: Adequate, Prn Tx Ordered Nausea/Vomiting Control: Adequate, Prn Tx Ordered Complications Possibly Related to Anesthesia: None Noted
[2016-12-25] MEDS ORDERED: PROMETHAZINE HCL 25 MG/ML INJ ONE (20:50)
[2016-12-25] MEDS ORDERED: DIAZEPAM 10 MG/2 ML SYR ONE (20:50)
[2016-12-25] MEDS: PROMETHAZINE HCL 25 MG/ML INJ IVP PRN ×2 (20:52→21:15)
[2016-12-25] MEDS ORDERED: LABETALOL HCL 5 MG/ML 20 ML MDV IVP ONE ×2 (20:52)
[2016-12-25] MEDS ORDERED: KETOROLAC 30 MG/1 ML SDV IVP ONE (20:55)
[2016-12-25] MEDS ORDERED: BISACODYL 10 MG SUPP PR PRN (20:55)
[2016-12-25] MEDS ORDERED: POLYETHYLENE GLYCOL 3350 17 GM PKT PO PRN (20:55)
[2016-12-25] MEDS ORDERED: KETOROLAC 30 MG/1 ML SDV ONE (20:55)
[2016-12-25] MEDS ORDERED: LACTULOSE 20 GM/30 ML UDCUP PO PRN (20:55)
[2016-12-25] MEDS ORDERED: MAGNESIUM HYDROXIDE 30 ML UDCUP PO PRN (20:55)
--- NOTE | 2016-12-25 20:55 | POSTOPPROG ---
Post Op Note Date of Operation: 12/25/16 Surgeon: Jordy Crisostomo Fusing Line Inspector: Shelby Millan PA-C Anesthesia: GET(General Endotracheal) Pre-op Diagnosis: Postop wound infection Post-op Diagnosis: same Procedure: Sp wound washout Inf/Abcess present in the surg proc area at time of surgery?: No Depth: Deep Incisional (Fascial) EBL: 50-100 Drains: Tapan Friedman (RICKY X 1) SOAP Progress Note Assessment/Plan: Assessment: Plan: S: Patient in PACU. Stable with expected incisional discomfort. O: NAD, Hypertensive 145/118 otherwise stable vitals PERRL, EOMI Speech fluent, following commands CN II-XII grossly intact GUEVARA X4 BLE 5/5= Incision c/d/i- dressed with nylon sutures in place A: 66 yo female sp lumbar wound washout. Hx of prior lumbar fusion ~[address] Crisostomo P: -Admit to floor -ID consulted and started on Vanc/Cefepime -Cultures pending -Advance diet as tolerated -Optimized pain control -RICKY X 1- superficial above fascia -PT/OT -Brace when OOB -Call with any new or worsening symptoms 12/25/16 20:52 12/25/16 21:13 Objective: Vital Signs Temp Pulse Resp BP Pulse Ox 36.7 C 72 16 161/92 H 98 12/25/16 16:04 12/25/16 18:45 12/25/16 18:45 12/25/16 18:45 12/25/16 18:45 Microbiology 12/25/16 19:40 Gram Stain - Final Back - Eswab 12/25/16 19:40 Gram Stain - Final Back - Tissue 12/25/16 19:31 Gram Stain - Final Back - Tissue 12/25/16 19:31 Gram Stain - Final Back - Eswab
--- NOTE | 2016-12-25 20:57 | GOP ---
[f rep st] OPERATIVE REPORT DATE OF OPERATION: 12/25/2016 SURGEON: Jordy Crisostomo MD CAD CAM PROGRAMMER: DIXIE Ortiz ANESTHESIA: General. PREOPERATIVE DIAGNOSIS: Suspected lumbar wound infection, status post prior lumbar decompression fusion surgery. POSTOPERATIVE DIAGNOSIS: Suspected lumbar wound infection, status post prior lumbar decompression fusion surgery. PROCEDURE PERFORMED: 1. Incision and drainage of open deep posterior lumbar subfascial wound with exploration. 2. Secondary closure of secondary wound/dehiscence, extensive and complicated, greater than 24 cm. FINDINGS: 1. open, necrotic wound edges with poor tissue healing SPECIMENS: Specimens were sent from the tissues above the fascia and below the fascia to Microbiology for Gram stain, culture, and appropriate analysis. ESTIMATED BLOOD LOSS: 50 mL. INDICATIONS: The patient is a 66-year-old woman, who underwent a lumbar decompression fusion by myself several weeks ago. She was doing quite well for several weeks and then noticed drainage from her wound with failure to heal. She had slightly elevated inflammatory markers. Given her body habitus and the draining wound, I was concerned for possible developing wound infection. We decided to proceed forth with an exploratory incision drainage of the wound with wound revision to obtain tissue specimens and help with wound healing. DESCRIPTION OF PROCEDURE: Patient was brought to the operating theater and underwent general endotracheal anesthesia without complications. She had Venodynes, CAROLYN hose, and the appropriate lines placed by Anesthesia. She was flipped prone onto the Tapan table and all bony prominences inspected and padded. The previous lumbar incision was identified and this area was prepped and draped in the usual sterile surgical fashion. A time-out was completed per protocol. The patient did receive antibiotics within 1 hour of incision; however, we did wait to give the antibiotics until we had obtained the initial cultures. At this point, the incision was opened sharply with pickups and scissors and the superficial stitches removed. We cut the necrotic edges of the wound in a fish mouth manner around her necrosis. She had evidence of purulent type appearing material, which we then cultured and sent to Microbiology. We then irrigated this superficial area after scraping the tissues with a curette with approximately 1500 mL of triple antibiotics. I explored extensively the suprafascial space and was not able to find any communication with the deeper spaces. At this point, we changed our gloves and all the equipment, and using clean instrumentation, we then cut open the fascia in the midline and opened it and explored the subfascial space. She had evidence of yellowish-appearing fluid, which appeared only consistent with a seroma and not infection. I took culture swabs of the subfascial space. We opened the fascia slightly more and then irrigated this area with approximately 500 mL of triple antibiotic irrigation. At this point, we closed the wound over a drain using Vicryl sutures in the deep layers and a running nylon stitch for the skin. The patient 's wound was dressed sterilely. She was then awakened, extubated, and taken to the recovery room in stable condition. There were no complications. The sponge , needle, and instrument counts were correct at the end of the case. COMPLICATIONS: None. /[id number]/MODL MTDD
[2016-12-25] MEDS ORDERED: ACETAMINOPHEN 500 MG TAB PO PRN (21:08)
[2016-12-25] MEDS ORDERED: HYDROCODONE/APAP 5/325 TAB PO PRN (21:19)
[2016-12-25] MEDS ORDERED: LABETALOL HCL 5 MG/ML 20 ML MDV ONE (21:28)
[2016-12-25] MEDS: SENNOSIDES/DOCUSATE SODIUM TAB PO SCH (22:38)
[2016-12-25] MEDS: FAMOTIDINE 20 MG TAB PO SCH (22:40)
[2016-12-25] MEDS: oxyCODONE IR 5 MG TAB PO PRN (22:40)
[2016-12-25] MEDS: VANCOMYCIN HCL/NORMAL SALINE 250 ML IV SCH (22:41)
[2016-12-25] MEDS: CEFEPIME HCL 1 GM in D5W 50 ML IV SCH (22:42)
[2016-12-26] MEDS: oxyCODONE IR 5 MG TAB PO PRN ×5 (02:50→22:30)
[2016-12-26 04:51] LABS: % IMMATURE GRANULYOCYTES 0.4 % (0.0-1.1); ABSOLUTE IMMATURE GRANULOCYTES 0.03 10^3/uL (0.00-0.10); ADD DIFF? NO; ADD MORPH? NO; ADD SCAN? NO; ATYPICAL LYMPHOCYTE FLAG 0 (0-99); FRAGMENT RBC FLAG 0 (0-99); HEMATOCRIT 35.2 % (38.0-47.0); HEMOGLOBIN 11.7 g/dL (12.6-16.3); LEFT SHIFT FLG 0 (0-99); LIPEMIA HEMOLYSIS FLAG 80 (0-99); MEAN CELL HEMOGLOBIN 29.5 pg (27.9-34.1); MEAN CELL HEMOGLOBIN CONCENTR. 33.2 g/dL (32.4-36.7); MEAN CELL VOLUME 88.7 fL (81.5-99.8); MEAN PLATELET VOLUME 9.6 fL (8.7-11.7); PLATELET CLUMPS FLAG 10 (0-99); PLATELET COUNT 196 10^3/uL (150-400); RED BLOOD CELL COUNT 3.97 10^6/uL (4.18-5.33); RED CELL DISTRIBUTION WIDTH 12.9 % (11.5-15.2)
[2016-12-26 05:08] LABS: ANION GAP 11 mEq/L (8-16); CALCIUM 9.2 mg/dL (8.5-10.4); CARBON DIOXIDE 22 mEq/l (22-31); CHLORIDE 102 mEq/L (97-110); GLOMERULAR FILTRATION RATE 55; GLUCOSE 121 mg/dL (70-100); POTASSIUM 4.7 mEq/L (3.5-5.2); SODIUM 135 mEq/L (134-144)
--- NOTE | 2016-12-26 08:09 | NEUSURGPN ---
Assessment/Plan: A: 66 yo female sp lumbar wound washout. Hx of prior lumbar fusion ~[address] Crisostomo POD1 P: -ID consulted and started on Vanc/Cefepime. No organisms seen on gram stain. cultures NGTD -Cultures pending -Optimized pain control -RICKY X 1- superficial above fascia, continue this morning -PT/OT -Brace when OOB -Call with any new or worsening symptoms Subjective: Incisional site pain. Denies new leg pain, numbness, tingling or weakness Objective: NAD A&Ox3 MAEx4 5/5 and equal in BUE and BLE. Incisional dressing c/d/i - Physician Discussed Patient with : Andressa Neurosurgery Physical Exam - Vitals, I&O, Labs I and O 12/25/16 12/26/16 12/27/16 05:59 05:59 05:59 Intake Total 50 Output Total 60 Balance -10 Weight 129.274 kg Intake: Oral (ml) 50 Output: RICKY Drain Output (ml) 60 Right Back Tapan Friedman 60 Other: Intake Quantity Yes Sufficient Number of Voids Toilet 2 Microbiology 12/25/16 19:40 Gram Stain - Final Back - Eswab 12/25/16 19:40 Gram Stain - Final Back - Tissue 12/25/16 19:31 Gram Stain - Final Back - Tissue 12/25/16 19:31 Gram Stain - Final Back - Eswab Vital Signs Temp Pulse Resp BP Pulse Ox 36.9 C 60 16 137/104 H 96 12/26/16 07:39 12/26/16 07:39 12/26/16 04:36 12/26/16 07:39 12/26/16 07:39 Laboratory Results 12/26/16 04:13 12/26/16 04:13 ICD10 Worksheet Patient Problems: Problems Problem Status Onset Degeneration of lumbar intervertebral disc Acute Osteoarthritis of knee Acute
[2016-12-26] MEDS ORDERED: CEFEPIME HCL 1 GM in D5W 50 ML IV SCH (09:00)
[2016-12-26] MEDS: VANCOMYCIN HCL/NORMAL SALINE 250 ML IV SCH (09:30)
[2016-12-26] MEDS: CYANO/VITAMIN B12 1000 MCG TAB PO SCH (10:21)
[2016-12-26] MEDS: CHOLECALCIFEROL VIT D3 2,000 UNITS TAB/CAP PO SCH (10:25)
[2016-12-26] MEDS: FAMOTIDINE 20 MG TAB PO SCH ×2 (10:27→22:31)
[2016-12-26] MEDS: LISINOPRIL/HCTZ 10/12.5 MG 1 EA TAB PO SCH (10:27)
[2016-12-26] MEDS ORDERED: VANCOMYCIN 1.5 GM in D5W 250 ML IV SCH (10:30)
[2016-12-26] MEDS: SENNOSIDES/DOCUSATE SODIUM TAB PO SCH ×2 (10:30→22:33)
[2016-12-26] MEDS: CEFEPIME HCL 1 GM in D5W 50 ML IV SCH (10:32)
--- NOTE | 2016-12-26 10:58 | GCON ---
[f rep st] CONSULTATION INFECTIOUS DISEASE CONSULT DATE OF CONSULTATION: 12/26/2016 REFERRING PHYSICIAN: Jordy Crisostomo MD REASON FOR CONSULTATION: To assist in the management of this 66-year-old female , status post lumbar spine surgery, now with possible postoperative infection. HISTORY OF PRESENT ILLNESS: The patient is a 66-year-old female whose previous medical history is notable for the followin. Morbid obesity. 2. Degenerative disk disease. 3. Hypertension. 4. Notable for left total knee replacement. Regarding her present issues, on November 21, the patient underwent L2 to L4 laminectomy and L2 to L5 TLIF, with no postoperative complications. The patient had a history of severe low back pain refractory to nonoperative interventions. The patient states that she did well after going home. Her was changing the dressings twice daily. They were not applying any topical antibiotic, lotions or ointments. She reports that she has also been maintaining excellent hygiene when she has a bowel movement and is very careful not to contaminate her wound. The patient states that approximately 2 weeks after going home, her noted a small amount of blood on the dressing. She was seen at Dr. Crisostomo's office, and this was felt secondary to some abrasion from the back brace. There was no obvious infection, but the patient was given 5 days of Keflex. She completed the course of therapy with Keflex (also note, the patient had no fevers or purulent drainage whatsoever from the wound, or evidence of cellulitis). She states that since that time she has had a small amount of blood visible on the incision. Things were stable until last Thursday night to Thursday morning. The patient states that she had been sleeping in a recliner, and decided to start sleeping in her bed. She had noticed a small increase in her usual discomfort in her back. She states she went to bed, rolled over, and felt a significant wetness. She asked her to remove the dressing and had noted that she had soaked the pad with some clear/pinkish fluid. She states it did not look like pus, per se. Also at that time, her noticed a small dehiscence in the incision approximately one-third of the way down. The opening in the incision continued to drain clearish fluid, so she called Dr. Crisostomo's office on Thursday. She was seen that day and was told there was no evidence of infection. Therefore, no antibiotics were administered. She went back for a wound check this past , with continued drainage from the wound. She states she was changing the dressing perhaps 3 times a day. The fluid was not malodorous. On , when she went back, they stated that there was some concern for infection and admitted her to the hospital for further evaluation and treatment. The patient had a lumbar spine MRI with and without contrast that revealed "bilateral transpedicular screws and rods at L2, L3, L4, and L5, with metallic artifact limiting the study. There was no definite epidural hematoma or epidural abscess. There was evidence of posterior deep subcutaneous nonspecific fluid, L1-L2 through L4-L5, "which may represent postsurgical fluid, cellulitis or early phlegmon infection." The patient underwent incision and drainage with operative washout on December 25 in the evening. The operative notes report that the incision was opened and revealed evidence of "purulent type" appearing material, which was cultured and sent to microbiology. The Gram stain shows no organisms and no PMNs. Culture is pending. This area was irrigated extensively. The suprafascial space was found to have no communication with deeper spaces. The fascia was then opened, and the subfascial area was explored. This showed "evidence of yellowish appearing fluid, which looked consistent with a seroma and not infection." The area was again irrigated and closed. Of note, antibiotics were held prior to surgery but given within 1 hour of the surgical incision. I am now asked to assist in her management. The patient states again that she has been maintaining excellent bathroom hygiene. She has been showering every other day. No water exposure, other than her shower. She has a cat, but the cat has been nowhere near her wound. She has not had any other unusual exposures and has not had any trauma to the back, per se, since coming home. She denies fevers, shaking chills, nausea, vomiting, diarrhea, abdominal pain, or shortness of breath. She did notice slightly increased back pain Thursday into Thursday, but states that the pain lessened when the wound opened up and started draining fluid. She has had no rashes, drenching night sweats, or other. Aside from what is listed above, 10 systems are reviewed, and all are negative. PAST MEDICAL HISTORY: Previous medical history as outlined above. ALLERGIES: Codeine, and morphine causes bradycardia. MEDICATIONS: Presently include vancomycin 1 g IV q.12 hours, cefepime 1 g IV q.12 hours, vitamin D, Valium, lisinopril/hydrochlorothiazide, Pepcid, Lovenox, milk of magnesia, Robaxin, MiraLAX. 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 She has a supportive . She has a cat. No unusual exposures, as outlined above. She denies tobacco. Occasional alcohol. No illicit substances. She is presently retired. FAMILY HISTORY: Unremarkable. PHYSICAL EXAM: VITAL SIGNS: T current 36.9, T-max 36.9, heart rate 60, blood pressure 137/104, 96% on room air. GENERAL: Morbidly obese female, very pleasant, nontoxic, no apparent distress. HEENT: Atraumatic normocephalic. Wearing glasses. Pupils equal, round, reactive to light. Extraocular movements are intact. No conjunctival injection, icterus or petechiae. No discharge from the nares or sinus process tenderness. Mucous membranes moist. No oral lesions noted. Dentition in excellent repair. No thyromegaly or palpable thyroid nodules. CARDIOVASCULAR: S1, S2. No rubs, gallops or murmurs. LUNGS: No increased respiratory effort. Clear to auscultation bilaterally, with no rales, rhonchi, or wheeze. ABDOMEN: Obese, soft, no organomegaly or tenderness to palpation, although difficult exam. BACK: Notable for extensive incision starting at the mid back down to the gluteal fold. There is no evidence of liberty-incisional cellulitis. Sutures are in place , with no obvious drainage or tenderness. SKIN: Warm and dry. No obvious rashes. MUSCULOSKELETAL: No muscle belly tenderness or evidence of arthritis. EXTREMITIES: No clubbing, cyanosis, or edema. The patient has a peripheral IV in her left hand, dorsum, which looks fine. NEUROLOGIC: She is alert and oriented x3. She is moving all 4 extremities. No focal deficits or sensory deficits. MICROBIOLOGIC DATA: Gram stain of the back tissue, both superficial and deep, shows no polys and no organisms. It has been set up Anaerobically and is pending. A fungal culture and AFB are also pending. LABORATORY DATA: White blood cell count of 8, hematocrit 35, platelet count of 196, ESR of 28, CRP of 23.5, BUN and creatinine 22/1.0. Radiographic data as outlined above. IMPRESSION: 66-year-old morbidly obese female, status post back surgery with hardware on November 21, now admitted for what appears to be a superficial postoperative infection. Given meticulous wound and bathroom hygiene, gram-negative pathogens seem less likely. The patient has more of an indolent presentation, atypical for Staphylococcus aureus, but this is still possible. Other suspects include coagulase-negative staphylococci or Streptococci. Thankfully, the infection does not appear to be deep or involve hardware. PLAN: 1. Discontinue cefepime. 2. Continue vancomycin, but will increase dose to 1.5 g IV q.12 hours. Ultimately, upon discharge, we may use Daptomycin instead given ease of use and administration, but will wait for culture results. 3. Check liver function tests while on antibiotics. 4. The patient will ultimately need a PICC line, and this was all outlined to her today. Suspect she will stay over the weekend pending culture results. Duration of antibiotics to be determined. Thank you very much for consulting Infectious Diseases. We will continue to follow this patient with you. /[id number]/MODL MTDD
[2016-12-26] MEDS ORDERED: VANCOMYCIN 500 MG in D5W 100 ML IV ONE (12:30)
[2016-12-26] MEDS: METHOCARBAMOL 750 MG TAB PO PRN ×2 (12:40→22:31)
[2016-12-26] MEDS: VANCOMYCIN 1.5 GM in D5W 250 ML IV SCH (22:29)
[2016-12-27 01:38] LABS: ALANINE AMINOTRANSFERASE 31 IU/L (9-52); ALBUMIN 3.9 g/dL (3.5-5.0); ALKALINE PHOSPHATASE 101 IU/L (38-126); ANION GAP 11 mEq/L (8-16); ASPARTATE AMINOTRANSFERASE 24 IU/L (14-46); BILIRUBIN,TOTAL 0.5 mg/dL (0.1-1.4); CALCIUM 9.4 mg/dL (8.5-10.4); CARBON DIOXIDE 26 mEq/l (22-31); CHLORIDE 100 mEq/L (97-110); CREATININE 1.1 mg/dL (0.6-1.0); GLOMERULAR FILTRATION RATE 50; GLUCOSE 93 mg/dL (70-100); POTASSIUM 3.9 mEq/L (3.5-5.2); SODIUM 137 mEq/L (134-144); TOTAL PROTEIN 6.7 g/dL (6.3-8.2)
[2016-12-27 01:57] LABS: CK-MB INTERPRETATION NEGATIVE (NEGATIVE)
[2016-12-27 01:59] LABS: CREATINE KINASE-MB FRACTION 3.59 ng/mL (0.00-3.19)
[2016-12-27] MEDS: oxyCODONE IR 5 MG TAB PO PRN ×4 (03:29→22:34)
--- NOTE | 2016-12-27 08:41 | SOAPPROG ---
SOAP Progress Note Assessment/Plan: A: 66 yo female sp lumbar wound washout. Hx of prior lumbar fusion ~[address] Crisostomo POD2 P: -ID consulted and started on Vanc/Cefepime. No organisms seen on gram stain. cultures NGTD. Now cefepime d/c'd just on vanc and possibly will change to daptomycin pending the cultures -Cultures pending -Optimized pain control -RICKY X 1- superficial above fascia, continue this morning (110 output) -PT/OT -Brace when OOB -Call with any new or worsening symptoms 12/27/16 08:39 Subjective: no major complaints Objective: Vital Signs Temp Pulse Resp BP Pulse Ox 36.5 C 58 L 12 129/99 H 97 12/27/16 07:59 12/27/16 07:59 12/27/16 07:59 12/27/16 07:59 12/27/16 07:59 Microbiology 12/25/16 19:40 Mycobacterial Smear (HARVINDER) - Final Back - Tissue 12/25/16 19:40 Gram Stain - Final Back - Eswab 12/25/16 19:40 Gram Stain - Final Back - Tissue 12/25/16 19:31 Gram Stain - Final Back - Tissue 12/25/16 19:31 Gram Stain - Final Back - Eswab 12/25/16 19:31 Mycobacterial Smear (HARVINDER) - Final Back - Tissue Laboratory Results 12/26/16 04:13 12/27/16 00:50 12/26/16 12/27/16 12/28/16 05:59 05:59 05:59 Intake Total 50 Output Total 60 90 20 Balance -10 -90 -20 AAOx3, full strength/sensation, dressings c/d/i - Pending Discharge Pending Discharge Within 24 Hours: No Pending Discharge Within 48 Hours: Yes Pending Discharge Date: 12/29/16 Pending Discharge Time: 11:00 ICD10 Worksheet Patient Problems: Problems Problem Status Onset Degeneration of lumbar intervertebral disc Acute Osteoarthritis of knee Acute
[2016-12-27] MEDS: METHOCARBAMOL 750 MG TAB PO PRN ×2 (08:48→17:59)
[2016-12-27] MEDS: CYANO/VITAMIN B12 1000 MCG TAB PO SCH (08:49)
[2016-12-27] MEDS: FAMOTIDINE 20 MG TAB PO SCH ×2 (08:49→21:34)
[2016-12-27] MEDS: SENNOSIDES/DOCUSATE SODIUM TAB PO SCH ×2 (08:49→21:34)
[2016-12-27] MEDS: LISINOPRIL/HCTZ 10/12.5 MG 1 EA TAB PO SCH (08:49)
[2016-12-27] MEDS: CHOLECALCIFEROL VIT D3 2,000 UNITS TAB/CAP PO SCH (08:50)
[2016-12-27] MEDS: ENOXAPARIN 40 MG/0.4 ML SYR SC SCH (08:54)
[2016-12-27] MEDS: VANCOMYCIN 1.25 GM in D5W 250 ML IV SCH ×2 (10:54→22:35)
[2016-12-27] MEDS ORDERED: ALTEPLASE 2 MG VIAL IVP PRN (11:58)
--- NOTE | 2016-12-27 12:05 | PCMIDPN ---
Assessment/Plan: 1. Postoperative superficial back infection/infected seroma: So far, cultures remain sterile. That being said, will likely treat with a shorter course of intravenous antibiotics; duration will be contingent on cultures and clinical course. Pharmacy called me regarding vancomycin level; they were concerned that trough levels would be too high on 1.5 g. Therefore, dose lowered to 1.25 g, and trough will be repeated tomorrow evening.Explained to the patient and her at length the logistics moving forward. PICC line will be placed today; social work will talk to them about plans for home antibiotics, etc. Likely home on Thursday. Of note, the patient's baseline CPK is elevated for unclear reasons. Will repeat this, and likely continue vancomycin. 2. Vancomycin infiltration, left forearm: This antibiotic is caustic; cold packs to inflamed area. PICC line today. 12/27/16 12:07 Subjective: Patient happy to hear that her cultures show no growth so far. Has some back discomfort, and constipation, but otherwise doing reasonably well. No nausea or vomiting. Objective: Vancomycin 1.25 g IV q.12 hours day 2 T-max 37.1degrees Vital Signs Temp Pulse Resp BP Pulse Ox 36.5 C 58 L 12 129/99 H 97 12/27/16 07:59 12/27/16 07:59 12/27/16 07:59 12/27/16 08:49 12/27/16 07:59 Microbiology 12/25/16 19:40 Mycobacterial Smear (HARVINDER) - Final Back - Tissue 12/25/16 19:40 Gram Stain - Final Back - Eswab 12/25/16 19:40 Gram Stain - Final Back - Tissue 12/25/16 19:31 Gram Stain - Final Back - Tissue 12/25/16 19:31 Gram Stain - Final Back - Eswab 12/25/16 19:31 Mycobacterial Smear (HARVINDER) - Final Back - Tissue Laboratory Results 12/26/16 04:13 12/27/16 00:50 12/26/16 12/27/16 12/28/16 05:59 05:59 05:59 Intake Total 50 Output Total 60 90 20 Balance -10 -90 -20 All back cultures no growth so far, Gram stain negative - Physical Exam General Appearance: no apparent distress, obese EENT: pharynx normal Respiratory: lungs clear Extremities: other (Left forearm with approximately 5 x 3 area of blanching erythema, which is raised, in area vancomycin infiltration. No evidence of clot or superficial thrombophlebitis) Back: other (Patient has an extensive incision down mid T-spine to lumbar spine just above gluteal cleft. Appropriate postoperative liberty-incisional erythema. No drainage. Incision intact.) ICD10 Worksheet Patient Problems: Problems Problem Status Onset Degeneration of lumbar intervertebral disc Acute Osteoarthritis of knee Acute
[2016-12-27] MEDS: VANCOMYCIN 1.5 GM in D5W 250 ML IV SCH (19:29)
[2016-12-28 04:34] LABS: ALANINE AMINOTRANSFERASE 37 IU/L (9-52); ALKALINE PHOSPHATASE 90 IU/L (38-126); ANION GAP 8 mEq/L (8-16); ASPARTATE AMINOTRANSFERASE 26 IU/L (14-46); BILIRUBIN,TOTAL 0.4 mg/dL (0.1-1.4); CALCIUM 8.9 mg/dL (8.5-10.4); CARBON DIOXIDE 25 mEq/l (22-31); CHLORIDE 104 mEq/L (97-110); GLOMERULAR FILTRATION RATE 55; GLUCOSE 92 mg/dL (70-100); SODIUM 137 mEq/L (134-144); TOTAL PROTEIN 5.5 g/dL (6.3-8.2)
[2016-12-28 04:50] LABS: CK-MB INTERPRETATION NEGATIVE (NEGATIVE); CREATINE KINASE-MB FRACTION 3.03 ng/mL (0.00-3.19)
[2016-12-28] MEDS: METHOCARBAMOL 750 MG TAB PO PRN ×2 (08:13→21:17)
[2016-12-28] MEDS: oxyCODONE IR 5 MG TAB PO PRN ×4 (08:14→21:17)
[2016-12-28] MEDS: CHOLECALCIFEROL VIT D3 2,000 UNITS TAB/CAP PO SCH (08:15)
[2016-12-28] MEDS: LISINOPRIL/HCTZ 10/12.5 MG 1 EA TAB PO SCH (08:15)
[2016-12-28] MEDS: FAMOTIDINE 20 MG TAB PO SCH ×2 (08:15→21:15)
[2016-12-28] MEDS: CYANO/VITAMIN B12 1000 MCG TAB PO SCH (08:15)
[2016-12-28] MEDS: SENNOSIDES/DOCUSATE SODIUM TAB PO SCH ×2 (08:16→21:15)
[2016-12-28] MEDS: ENOXAPARIN 40 MG/0.4 ML SYR SC SCH (08:16)
--- NOTE | 2016-12-28 08:17 | SOAPPROG ---
SOAP Progress Note Assessment/Plan: A: 66 yo female sp lumbar wound washout. Hx of prior lumbar fusion ~[address] Crisostomo POD3 P: -ID consulted and currently on vanc, awaiting final cultures and then abx plan, PICC in place -Cultures pending -Optimized pain control -RICKY X 1- superficial above fascia, likely remove tomorrow (60 output) -PT/OT -Brace when OOB -Call with any new or worsening symptoms 12/27/16 08:39 12/28/16 08:15 Subjective: no acute complaints Objective: Vital Signs Temp Pulse Resp BP Pulse Ox 36.5 C 70 16 153/80 H 96 12/28/16 07:29 12/28/16 07:29 12/28/16 07:29 12/28/16 07:29 12/28/16 07:29 Microbiology 12/25/16 19:40 Gram Stain - Final Back - Eswab 12/25/16 19:40 Gram Stain - Final Back - Tissue 12/25/16 19:31 Gram Stain - Final Back - Tissue 12/25/16 19:31 Gram Stain - Final Back - Eswab Laboratory Results 12/26/16 04:13 12/28/16 04:00 12/27/16 12/28/16 12/29/16 05:59 05:59 05:59 Intake Total 250 Output Total 90 60 Balance -90 190 AAOx3, full strength/sensation, dressing c/d/i - Pending Discharge Pending Discharge Within 24 Hours: Yes Pending Discharge Date: 12/29/16 Pending Discharge Time: 11:00 ICD10 Worksheet Patient Problems: Problems Problem Status Onset Degeneration of lumbar intervertebral disc Acute Osteoarthritis of knee Acute
[2016-12-28] MEDS: VANCOMYCIN 1.25 GM in D5W 250 ML IV SCH (09:49)
[2016-12-28] MEDS ORDERED: SIMETHICONE 80 MG TAB CHEW PO PRN (10:28)
--- NOTE | 2016-12-28 11:28 | PCMIDPN ---
Assessment/Plan: 1. Postoperative superficial back infection/infected seroma: The patient's [id number] cost for twice daily vancomycin is significantly higher compared with generic daptomycin. Of note, I did repeat her CPK, which is lower today. Suspect elevation related to surgery. Therefore, will proceed with generic daptomycin. Upon review of the available literature in dosing daptomycin in the obese patient, there is no difference in clinical failure or adverse effects when patients are dosed using adjusted body weight. Therefore, will use adjusted body weight; 6 milligram/kilogram dose daily will be 540 mg daily. She will receive her 1st dose tonight, and hopefully home tomorrow. We will need to make her an appointment in our clinic for follow-up. Suspect she can have a short course of intravenous therapy given superficial nature of the infection. Cultures show no growth so far. I did review with the patient possible adverse effects associated with daptomycin, including myopathy/ rhabdomyolysis and eosinophilic pneumonia. I gave her my card, and told her 1 of my colleagues would be in to see her tomorrow. Drain to be removed this afternoon. 2. Vancomycin infiltration, left forearm: This antibiotic is caustic; continue cold packs to inflamed area. Better today. 12/28/16 11:29 Subjective: No complaints. Had 2 fairly regular bowel movements. No nausea or vomiting. Spent most of the visit talking about insurance issues an antibiotics. Objective: Vancomycin 1.25 g IV q.12 hours day 3 T-max 37.1degrees Vital Signs Temp Pulse Resp BP Pulse Ox 36.5 C 70 16 153/80 H 96 12/28/16 07:29 12/28/16 07:29 12/28/16 07:29 12/28/16 08:15 12/28/16 07:29 Microbiology 12/25/16 19:40 Gram Stain - Final Back - Eswab 12/25/16 19:40 Gram Stain - Final Back - Tissue 12/25/16 19:31 Gram Stain - Final Back - Tissue 12/25/16 19:31 Gram Stain - Final Back - Eswab Laboratory Results 12/26/16 04:13 12/28/16 04:00 12/27/16 12/28/16 12/29/16 05:59 05:59 05:59 Intake Total 250 Output Total 90 60 Balance -90 190 All back cultures thus far show no growth - Physical Exam General Appearance: apparent distress, obese EENT: No scleral icterus, No thrush Respiratory: lungs clear Extremities: other (PICC line right upper extremity looks fine.) Back: other (Patient has an extensive incision down her lower back that is clean , dry, and intact with appropriate liberty-incisional postoperative erythema. No significant tenderness to palpation. Small drain in place superior pole of incision; bulb is empty.) Skin: other (Left forearm with minimal blanching erythema at site of previous vancomycin infiltration, better today.) ICD10 Worksheet Patient Problems: Problems Problem Status Onset Degeneration of lumbar intervertebral disc Acute Osteoarthritis of knee Acute
[2016-12-28] MEDS: DAPTOmycin 540 MG in NS 100 ML IV SCH (18:11)
[2016-12-29] MEDS: oxyCODONE IR 5 MG TAB PO PRN ×4 (01:55→16:35)
[2016-12-29 07:36] VITALS: RESP 16
[2016-12-29] MEDS: ENOXAPARIN 40 MG/0.4 ML SYR SC SCH (07:55)
[2016-12-29] MEDS: CYANO/VITAMIN B12 1000 MCG TAB PO SCH (07:56)
[2016-12-29] MEDS: SENNOSIDES/DOCUSATE SODIUM TAB PO SCH (07:56)
[2016-12-29] MEDS: CHOLECALCIFEROL VIT D3 2,000 UNITS TAB/CAP PO SCH (07:56)
[2016-12-29] MEDS: FAMOTIDINE 20 MG TAB PO SCH (07:57)
[2016-12-29] MEDS: METHOCARBAMOL 750 MG TAB PO PRN ×2 (07:57→16:35)
[2016-12-29] MEDS: LISINOPRIL/HCTZ 10/12.5 MG 1 EA TAB PO SCH (07:57)
--- NOTE | 2016-12-29 11:00 | NEUSURGPN ---
<Shelby Millan - Last Filed: 12/29/16 10:58> Assessment/Plan: Assessment: Plan: A: 66 yo female sp lumbar wound washout. Hx of prior lumbar fusion ~[address] Crisostomo POD2 P: -ID consulted and started on Vanc/Cefepime and will switch to Daptomycin. Has PICC. Will go to infusion clinic for 2 weeks. - No organisms seen on gram stain. cultures NGTD -Optimized pain control- oxy and robaxin -RICKY removed -PT/OT -Brace when OOB -Call with any new or worsening symptoms -Discussed and seen by Dr. Crisostomo Subjective: Still has incisional back pain but no leg pain. Pain managed well on current oral regimen. ID will see for 2 weeks in infusion clinic for abx treatment. Objective: NAD A&Ox3 MAEx4 5/5 and equal in BUE and BLE. Incisional dressing c/d/i 12/25/16 20:52 12/25/16 21:13 - Physician Discussed Patient with Dr.: Crisostomo Patient Seen by : Andressa Neurosurgery Physical Exam - Vitals, I&O, Labs I and O 12/28/16 12/29/16 12/30/16 05:59 05:59 05:59 Intake Total 250 600 Output Total 60 Balance 190 600 Intake: Oral (ml) 600 IV Intake (ml) 250 Output: RICKY Drain Output (ml) 60 Right Back Tapan Friedman 60 Other: Intake Quantity Yes Sufficient Number of Voids Toilet 2 Number of Stools Toilet 1 Microbiology 12/25/16 19:40 Gram Stain - Final Back - Eswab 12/25/16 19:40 Gram Stain - Final Back - Tissue 12/25/16 19:31 Gram Stain - Final Back - Tissue 12/25/16 19:31 Gram Stain - Final Back - Eswab Vital Signs Temp Pulse Resp BP Pulse Ox 37.3 C 66 16 162/81 H 96 12/29/16 07:36 12/29/16 07:36 12/29/16 07:36 12/29/16 07:57 12/29/16 07:36 Laboratory Results 12/26/16 04:13 12/28/16 04:00 ICD10 Worksheet Patient Problems: Problems Problem Status Onset Degeneration of lumbar intervertebral disc Acute Osteoarthritis of knee Acute <Jordy Crisostomo - Last Filed: 12/29/16 16:46> Assessment/Plan: I met with the patient today. Overall she is doing well with her pain control. Anti-biotics to be determined by ID. She will follow-up in 2 weeks for suture removal. All questions answered. Dressing to be changed before her discharge. Neurosurgery Physical Exam - Vitals, I&O, Labs I and O 12/28/16 12/29/16 12/30/16 05:59 05:59 05:59 Intake Total 250 600 Output Total 60 Balance 190 600 Intake: Oral (ml) 600 IV Intake (ml) 250 Output: RICKY Drain Output (ml) 60 Right Back Tapan Friedman 60 Other: Intake Quantity Yes Sufficient Number of Voids Toilet 2 3 Number of Stools Toilet 1 Microbiology 12/25/16 19:40 Gram Stain - Final Back - Eswab 12/25/16 19:40 Gram Stain - Final Back - Tissue 12/25/16 19:31 Gram Stain - Final Back - Tissue 12/25/16 19:31 Gram Stain - Final Back - Eswab Vital Signs Temp Pulse Resp BP Pulse Ox 36.9 C 69 16 153/91 H 99 12/29/16 16:00 12/29/16 16:00 12/29/16 16:00 12/29/16 16:00 12/29/16 16:00 Laboratory Results 12/26/16 04:13 12/28/16 04:00
[2016-12-29] MEDS: DAPTOmycin 540 MG in NS 100 ML IV SCH (14:25)
--- NOTE | 2016-12-29 14:27 | PCMIDPN ---
Assessment/Plan: Assessment: Lumbar wound infection-appears superficial. All cultures negative. Agree with empiric therapy with daptomycin for 2 weeks from washout. This means stop date is 01/08/2017. Orders placed in [facility] for the infusion center. Will follow up the patient approximately 1 week in the office. Plan: 1. 2 week empiric course of IV daptomycin 540 mg daily starting from surgical washout. 2. Follow-up in ID Clinic in 1 week time. 3. Routine monitoring labs including creatine kinase. 12/29/16 14:27 Subjective: Patient is sitting up in her bed in her hospital room. She notes that postsurgical discomfort is decreasing. No fevers or chills. Tolerating daptomycin without issue. No muscle pain. Objective: Daptomycin #4 Vital Signs Temp Pulse Resp BP Pulse Ox 37.3 C 66 16 162/81 H 96 12/29/16 07:36 12/29/16 07:36 12/29/16 07:36 12/29/16 07:57 12/29/16 07:36 Microbiology 12/25/16 19:40 Gram Stain - Final Back - Eswab 12/25/16 19:40 Gram Stain - Final Back - Tissue 12/25/16 19:31 Gram Stain - Final Back - Tissue 12/25/16 19:31 Gram Stain - Final Back - Eswab Laboratory Results 12/26/16 04:13 12/28/16 04:00 12/28/16 12/29/16 12/30/16 05:59 05:59 05:59 Intake Total 250 600 Output Total 60 Balance 190 600 - Physical Exam General Appearance: WD/WN, alert, no apparent distress, obese, non-toxic Respiratory: lungs clear, normal breath sounds, No respiratory distress Cardiac/Chest: regular rate, rhythm, No tachycardia Extremities: non-tender, normal inspection Back: normal inspection Skin: normal color, warm/dry, No rash Neuro/Psych: alert, normal mood/affect, oriented x 3 ICD10 Worksheet Patient Problems: Problems Problem Status Onset Degeneration of lumbar intervertebral disc Acute Osteoarthritis of knee Acute
[2016-12-29 16:22] VITALS: BP 153/91; PULSE 69; TEMP 98.4; O2SAT 99
== END 2016-12-29 16:53 | disposition home or self-care (01) | DRG 857 ==
LOC: F3N 13:33 → OBSVTOIN 20:55
PROVIDERS: ADMIT Neurological Surgery; ATTEND Neurological Surgery
PROC: 0JQ70ZZ Repair Back Subcutaneous Tissue and Fascia, Open Approach (ICD-10-PCS; principal; 2016-12-25 15:00)
PROC: 0H96X0Z Drainage of Back Skin with Drainage Device, External Approach (ICD-10-PCS; principal; 2016-12-25 15:00)
PROC: 02HV33Z Insertion of Infusion Device into Superior Vena Cava, Percutaneous Approach (ICD-10-PCS; 2016-12-27)
DX: T81.4XXA Infection following a procedure, initial encounter (principal); L76.34 Postprocedural seroma of skin and subcutaneous tissue following other procedure; Z98.1 Arthrodesis status; I10 Essential (primary) hypertension; E66.01 Morbid (severe) obesity due to excess calories; Z96.652 Presence of left artificial knee joint; Z68.41 Body mass index [BMI] 40.0-44.9, adult
CPT/HCPCS: 97116-GP; 97161-GP; 97165-GO; A9585; C1751; G8978-GP-CJ; G8979-GP-CI; G8980-GP-CI; G8987-GO-CI; G8988-GO-CI; G8989-GO-CI; J0171; J0690; J0692; J0878; J1100; J1650; J1885; J2250; J2405; J2550; J2704; J3010; J3370; J3490

== ENCOUNTER → 2017-02-12 | Outpatient (CLI) | payer OTHER, MEDICARE | LOC: BMCIMAGING 13:54 | PROVIDERS: ATTEND Internal Medicine | DX: Z12.31 Encounter for screening mammogram for malignant neoplasm of breast (principal) | CPT/HCPCS: G0202 ==

== ENCOUNTER → 2018-02-15 | Outpatient (CLI) | payer OTHER, MEDICARE | LOC: BMCIMAGING 09:06 | PROVIDERS: ATTEND Internal Medicine | DX: Z12.31 Encounter for screening mammogram for malignant neoplasm of breast (principal) ==